=== PATIENT | female | born 1965 | race Caucasian/White ===

== ENCOUNTER 2018-10-10 00:42 | Emergency (ER) | payer OTHER, BC ==
--- NOTE | 2018-10-10 01:23 | EDM.PDOC ---
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 She notes it is a sharp, stabbing pain when she moves it wrong. Does not recall any inciting injury. Has not fallen on it, but rather it slowly came on over time. Has been wearing a wrist splint to see if helps but didn't tonight. Feels like is is swollen on the outer (pinky) side of her arm. No other joint swelling, symptoms or concerns. right wrist Pain Score (Numeric/FACES): 4 - Related Data Allergies Allergy/AdvReac Type Severity Reaction Status Date / Time Unable to Assess Allergy Unverified 10/10/18 00:54 Home Meds: Home Meds Levothyroxine Sodium [Synthroid] 25 mcg PO DAILY 10/10/18 [History] OXcarbazepine [Oxcarbazepine] 600 mg PO DAILY 10/10/18 [History] OXcarbazepine [Oxcarbazepine] 900 mg PO BEDTIME 10/10/18 [History] buPROPion HCl [Wellbutrin Sr] 150 mg PO BID 10/10/18 [History] busPIRone [Buspar] 15 mg PO TID 10/10/18 [History] Past Medical History Psychiatric History: Reports: Bipolar, Depression Endocrine/Metabolic History: Reports: Hypothyroidism - Past Surgical History Female Surgical History: Reports: Hysterectomy Social & Family History - Family History Family Medical History: Noncontributory - Tobacco Use Smoking Status *Q: Never Smoker - Caffeine Use Caffeine Use: Reports: Coffee - Recreational Drug Use Recreational Drug Use: No - Living Situation & Occupation Occupation: Employed Social History Comment: 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 ED EXAM, GENERAL - Physical Exam Exam: See Below Free Text/Narrative:: General: alert, pleasant no acute distress Right wrist: very slight swelling noted over the lateral (ulnar) side as compared with left. Pain with movement of wrist, notes it hurts mostly in the side of her arm. Able to flex and extend fingers, abduct against resistance, full strength in thumb movement. no obvious ligamentous laxity. no skin lesions, redness, or warmth of skin no fluctuance felt in joint, tender over lateral side of arm, difficult to localize to extensor or flexor surface. no elbow pain or limitation of movement Course - Vital Signs Text/Narrative:: patient evaluated - seems most consistent with some type of tendinopathy, she has full strength and range of motion, and it is difficult to localize any tenderness. No known injury so I do not think an xray will be particularly helpful at this time. She already has a splint which she finds to be very helpful. Offered Toradol, but patient refused stating she would rather take ibuprofen once getting home. Ice pack provided for drive. Recommended followup with PCP for possible ortho evaluation vs referral for PT or OT. She was in agreement with this and had no further questions. Last Recorded V/S: Last Vital Signs Temp 36.8 C 10/10/18 01:01 Pulse 66 10/10/18 01:01 Resp 16 10/10/18 01:01 BP 110/80 10/10/18 01:01 Pulse Ox 100 10/10/18 01:01 Departure - Departure Time of Disposition: Disposition: Home, Self-Care 01 Condition: Fair Clinical Impression: Tendonitis - Discharge Information *PRESCRIPTION DRUG MONITORING PROGRAM REVIEWED*: Not Applicable *COPY OF PRESCRIPTION DRUG MONITORING REPORT IN PATIENT DONALD: Not Applicable Instructions: Tendinitis, Tendinitis, [id number] Referrals: R[facility]a [facility] [Primary Care Provider] - Forms: ED Department Discharge Additional Instructions: seems to be some sort of activity related tendonitis (inflammation of tendon), less likely ligament tear given that it hurts more with activity. Neither of these will show on an xray. continue wearing brace if seems to help modify activity as able - may need to get a work restriction regarding that arm/ hand - but this may also keep you from working at all, so its sometimes difficult to balance ok to take: ibuprofen 600mg (3 tabs) up to 3X/day tylenol per bottle ice usually very helpful follow up with PCP - may be able to refer you to physical or occupational therapy who can work on some exercises to help it improve
== END 2018-10-10 01:30 | disposition home or self-care (01) ==
LOC: FB.ED 00:42
DX: M77.9 Enthesopathy, unspecified (principal); F32.9 Major depressive disorder, single episode, unspecified; E03.9 Hypothyroidism, unspecified; Z79.899 Other long term (current) drug therapy; Z90.710 Acquired absence of both cervix and uterus
CPT/HCPCS: 99283